=== PATIENT | female | born 1970 | race Caucasian/White ===

== ENCOUNTER 2021-12-29 11:14 | Emergency (ER) | payer OTHER, MEDICARE ==
[2021-12-29 11:50] LABS: ANION GAP 12.1 mmol/L (5-15); CHLORIDE,CL 109 mmol/L (98-107); SODIUM,NA 143 mmol/L (136-145)
== END 2021-12-29 12:27 | disposition short-term general hospital (02) ==
LOC: VM.ED 11:14
DX: R41.89 Other symptoms and signs involving cognitive functions and awareness (principal); Z88.6 Allergy status to analgesic agent
CPT/HCPCS: 36415; 70450; 80048; 84484; 85025; 85610; 93010; 99284; 99285-25

== ENCOUNTER 2022-04-20 09:27 | Emergency (ER) | payer OTHER, MEDICARE ==
[2022-04-20 09:45] VITALS: BP 103/63; PULSE 77
[2022-04-20] MEDS ORDERED: Ketorolac 30 MG/ML SDV IM ONE (11:01)
[2022-04-20] MEDS ORDERED: Promethazine 25 MG/ML SDV IM ONE (11:02)
== END 2022-04-20 11:16 | disposition home or self-care (01) ==
LOC: VM.ED 09:27 → SUPCPDRO 09:27 → VM.ED 11:16
DX: G43.511 Persistent migraine aura without cerebral infarction, intractable, with status migrainosus (principal); Z88.5 Allergy status to narcotic agent
CPT/HCPCS: 96372; 99283; J1885; J2550